=== PATIENT | female | born 1985 | race Two or more races ===

== ENCOUNTER → 2024-04-01 | Outpatient (CLI) | payer OTHER, SELFPAY ==
[2024-04-01 09:26] LABS: Basophils % (Auto) 1 % (0-2.5); Eosinophils # (Auto) 0.1 Thou/mm3 (0.0-0.5); Eosinophils % (Auto) 2 % (0-10); Hematocrit 37.7 % (36.0-46.0); Hemoglobin 12.9 g/dL (12.0-16.0); Immature Granulocytes % (Auto) 0 % (0-0); Immature Granulocytes Auto 0.02 Thou/mm3 (0.00-0.00); Lymphocytes # (Auto) 1.6 Thou/mm3 (1.0-4.8); Lymphocytes % (Auto) 25 % (10-50); Mean Corpuscular HGB Conc 34.2 g/dl (31.0-37.0); Mean Corpuscular Hemoglobin 30.6 pg (25.0-35.0); Mean Corpuscular Volume 89 fL (80-100); Monocytes # (Auto) 0.3 Thou/mm3 (0.0-0.8); Monocytes % (Auto) 5 % (0-12); Neutrophils # (Auto) 4.2 Thou/mm3 (1.8-7.7); Neutrophils % (Auto) 66 % (37-80); Nucleated Red Blood Cell % 0 /100 WBC (0); Platelet Count 319 Thou/mm3 (140-440); RDW Standard Deviation 38.2 fL (36.4-46.3); Red Blood Count 4.22 Miln/mm3 (4.00-5.20); White Blood Count 6.3 Thou/mm3 (3.6-11.0)
[2024-04-01 09:45] LABS: Alanine Aminotransferase 32 U/L (10-49); Albumin, Serum 4.4 gm/dL (3.5-5.0); Albumin/Globulin Ratio 1.9 (1.2-2.2); Alkaline Phosphatase 105 U/L (46-116); Anion Gap 9 (7-16); Aspartate Amino Transferase 19 U/L (0-34); BUN/Creatinine Ratio 14 Ratio (12-20); Bilirubin,Total 0.4 mg/dL (0.3-1.2); Blood Urea Nitrogen 10 mg/dL (9-23); Calcium 9.1 mg/dL (8.3-10.6); Calcium (Corrected) 9.1 mg/dL (8.5-10.1); Chloride 107 mMol/L (98-107); Creatinine (Component) 0.7 mg/dL (0.6-1.3); Globulin 2.3 gm/dL (2.3-3.5); Glucose 101 mg/dL (74-106); Osmolality,Calculated 276 (275-295); Potassium 3.8 mMol/L (3.4-5.1); Sodium 139 mMol/L (136-145); Total Protein 6.7 gm/dL (5.7-8.2); eGFR > 60 See Note
[2024-04-01 10:07] LABS: Carcinoembryonic Antigen 1.1 ng/mL (0.0-5.0)
== END | disposition home or self-care (01) ==
PROVIDERS: PCP Internal Medicine; Referring Provider Internal Medicine Hematology & Oncology; Visit Provider Internal Medicine Hematology & Oncology
DX: C50.311 Malignant neoplasm of lower-inner quadrant of right female breast (principal); C50.111 Malignant neoplasm of central portion of right female breast
CPT/HCPCS: 36415; 80053; 82378; 85025; 86304

== ENCOUNTER 2024-04-04 15:07 | Outpatient (RCR) | payer OTHER, SELFPAY ==
--- NOTE | 2024-04-05 06:10 | CTCFLWUP_ITS ---
Patient: EILEEN TATUM : 1985 Page 13 of 13 FOLLOW UP NOTE DATE OF SERVICE: 04/04/2024 NAME: EILEEN TATUM ACCOUNT: [id number] : 1985 AGE: 38 DIAGNOSIS: Stage I (pT1b, snN0, cM0) ER positive, DE positive, HER-2/austin negative, intermediate grade invasive ductal carcinoma of the right breast. S/p lumpectomy (12/11/2020) and sentinel lymph node b iopsy (01/15/2021) Oncotype DX recurrence score 24. S/p adjuvant chemotherapy with 1 cycle of AC and 3 cycles of TC chemotherapy. Patient was not able t o tolerate Adriamycin regimen which caused significant palpitations. (04/08/2021 - 06/18/2021) S/p adjuvant radiation therapy to the right breast (07/17/2021 - 09/04/2021) Ms. Tatum is premenopausal. Last menstrual period was on 06/12/2021. On Lupron and anastrozole (07/08/2021?02/13/2022). Anastrozole discontinued due to significant arthra lgias. Patient is started on Aromasin. Lupron and Aromasin stopped on 09/24/2022 due to depression a t patient's request. Tamoxifen started on 09/24/2022. PALB2 and CHEK2 mutaion positive S/p hysteroscopy, LEEP cone biopsy of the cervix, endocervical curettings and endometrial curettings on 12/16/2022. Patient had cold knife conization and endocervical curettage again on 02/18/2023. Pathology was nega tive for malignancy. Status post bilateral mastectomies on 09/23/2023 REASON FOR TODAY?S VISIT: Patient is here for follow-up. Patient have early stage breast cancer but was found to have PAL B2 and CHEK2 mutation and underwent bilateral mastectomy hysterectomy and oopho rectomy. Patient also follows with Dr. Ravi for his pancreatic cancer surveillance and Dr. Faustino hebert GI cancer surveillance. Patient understand that she is at high risk of GI malignancies. HISTORY OF PRESENT ILLNESS: Eileen Tatum is a 38-year-old ENG speaking female with f ollowing oncology history. Ms. Tatum felt a lump in the upper inner quadrant of the right [address] in early part of 2018. She saw Dr. Camp who apparently aspirated this area about 3 times. Fauzia ent continues to have the mass lesion. 10/21/2018: Patient had bilateral breast ultrasound? 01/25/2019: Ultrasound-guided biopsy of the right breast cystic solid mass lesion? 05/11/2020: Bilateral diagnostic digital mammograms? 07/17/2020: Right breast ultrasound? 09/06/2020: right breast ultrasound-guided biopsy? 12/11/2020: Patient had right breast lumpectomy? 01/15/2021: Ms. Tatum had sentinel lymph node biopsy? Oncotype DX score (reported on 03/19/2021): Recurrence score 24 with an absolute chemotherapy benefit of 6.5% in premenopausal woman. 02/18/2021: [facility] genetic test results? 04/08/2021: Patient received first cycle of dose dense AC. Unfortunately she developed significant t achycardia along with shortness of breath intermittently few days after chemotherapy. She was monito ring her tachycardia on the apple phone along with apple watch. At times her heart rate went up to 1 70. 05/06/2021: Patient received first cycle of TC chemotherapy. 05/15/2021?05/20/2021: Patient was admitted to [facility] because of neutropenic fever as well as asymptomatic Covid infection. She was treated with IV antibiotics as well as Neupogen. S he did not have any pneumonia. She did not require any oxygen therapy. 04/08/2021?06/18/2021: Ms. Tatum received 1 cycle of AC chemotherapy and 3 cycles of TC chemothe rapy in the adjuvant setting. 07/08/2021: Ms. Tatum is started on anastrozole and Lupron. 12/11/2021: Pelvic ultrasound? 02/13/2022: Anastrozole discontinued due to arthralgias. Patient is started on Aromasin. 09/24/2022: Stopped Lupron due to depression at patient?s request 09/23/2022: Started on tamixofen. 11/07/2022: US transvaginal 11/07/2022: Mammo CAD diagnostic BI 12/09/2022: Patient had endometrial biopsy as well as endocervical biopsy 12/16/2022: Ms. Tatum had hysteroscopy, LEEP cone biopsy of the cervix, endocervical curettings and endometrial curettings 02/18/2023: Ms. Tatum had examination under anesthesia, cold knife conization and endocervical curettage for a suspicious mass of the cervix. 06/16/2023: Bilateral screening mammograms 06/24/2023: Bilateral breast ultrasound? 09/23/2023: Patient had bilateral mastectomies. PAST MEDICAL HISTORY: Anemia PAST SURGICAL HISTORY: Appendectomy; umbilical hernia repair - 2019 Right breast lumpectomy - 12/11/2020 Reserve node biopsy - Left knee - 01/09/2021 Lasik surgery - 2013 MEDICATIONS: 1. Atarax - 25 mg 1 tab As directed 2. Flexeril - 5 mg 1 tab Daily 3. gabapentin - 100 mg 1 tab Daily 4. tamoxifen - 20 mg 1 tab Daily 5. Tylenol - 325 mg 1 tab As directed 6. Zofran - 8 mg 1 tab Three times a day 7. ZyrTEC - 10 mg 1 Capsule Daily?Palabra Meds? Medications Last Reconciled by Elena Haynes MA on 12/02/2023 ALLERGIES: tramadol; dairy; Adhesive tape REVIEW OF SYSTEMS:?Clone ROS? Neurological: No headache, seizures or blurring of vision. Gastrointestinal: No nausea, vomiting, diarrhea or constipation. Cardiovascular: No palpitations or angina pains. Respiratory: No cough, chest pain or shortness of breath. PHYSICAL EXAMINATION:?ClonePE? VITAL SIGNS: Temperature?98.2, B/P?120/85, Oxygen?Saturation?97% EYE: Conjunctivae is pink. MOUTH: Oral cavity is dry. CHEST: Clear to auscultation. No wheezes or rales audible. Very well healing scar on the right breas t without any evidence of infection. CARDIAC: Rhythm regular, no murmurs or gallops present. ABDOMEN: Soft. No hepatomegaly. No splenomegaly. EXTREMITIES: No pedal edema or cyanosis. LABORATORY DATA: Date 04/01/2024 Time 8:24 AM ??WHITE BLOOD COUNT (Thou/mm3) 6.3 ??RED BLOOD COUNT (Miln/mm3) 4.22 ??HEMOGLOBIN (gm/dl) 12.9 ??HEMATOCRIT (%) 37.7 ??MCV (MEAN CORPUSCULAR VOL) (fl) 89 ??MCH (MEAN CORPUSCULAR HGB) (pg) 30.6 ??MCHC (MEAN CORPSCULR HGB CONC) (gm/dl) 34.2 ??RDW (RBC DISTRIBUTION WDTH) SD (fl) 38.2 ??PLATELET COUNT (Thou/mm3) 319 ??NEUTROPHILS %, AUTO (%) 66 ??LYMPH %, AUTO (%) 25 ??MONO %, AUTO (%) 5 ??EOS %, AUTO (%) 2 ??BASO %, AUTO (%) 1 ??NUCLEATED RBC % (/100 WBC) 0 ??NEUTROPHILS, AUTO (Thou/mm3) 4.2 ??LYMPH, AUTO (Thou/mm3) 1.6 ??MONO, AUTO (Thou/mm3) 0.3 ??EOS, AUTO (Thou/mm3) 0.1 ??BASO, AUTO (Thou/mm3) 0.0 ??NUCLEATED RBC # (Thou/mm3) 0.00 ??IMMATURE GRANULOCYTES % AUTO (%) 0 ??IMMATURE GRANULOCYTES, AUTO (Thou/mm3) 0.02 H ??GLUCOSE,RANDOM (mg/dL) 101 ??BLOOD UREA NITROGEN (mg/dL) 10 ??CREATININE (mg/dL) 0.70 ??SODIUM (mmol/L) 139 ??POTASSIUM (mmol/L) 3.8 ??CHLORIDE (mmol/L) 107 ??CO2 (CARBON DIOXIDE) (mmol/L) 23.0 ??ANION GAP (mmol/L) 9 ??OSMOLALITY, CALC 276 ??BUN/CREATININE RATIO (Ratio) 14 ??CrCl (CandG) (ml/min) 131.27 ??AST/SGOT (Unit/L) 19 ??ALT/SGPT (Unit/L) 32 ??ALKALINE PHOSPHATASE (Unit/L) 105 ??BILIRUBIN, TOTAL (mg/dL) 0.4 ??PROTEIN TOTAL (gm/dl) 6.7 ??ALBUMIN, SERUM (gm/dl) 4.4 ??GLOBULIN (gm/dl) 2.3 ??ALBUMIN/GLOBULIN RATIO 1.9 ??CALCIUM, SERUM (mg/dL) 9.1 ??CALCIUM SERUM (CORRECTED) (mg/dL) 9.1 ??CEA (O*) (ng/ml) 1.1 ??CA 125 (O*) (Unit/mL) 9.0 Other Labs ? ??CrCl (J) (ml/min) 109.5 ??eGFR (See Note) > 60 ASSESSMENT: 1. Stage I (pT1b, snN0, cM0) ER positive, DE positive, HER-2/austin negative, intermediate grade invasiv e ductal carcinoma of the right breast. S/p lumpectomy (12/11/2020) and sentinel lymph node biopsy (). Oncotype DX recurrence score 24. KXEN hereditary cancer test showed her to be positive for PALB2 as well as CHEK2 mutations a s described above. Ms. Tatum's paternal aunt had breast cancer. No family history of ovarian cancers Patient had bilateral prophylactic mastectomies on 09/23/2023 in [place] followed by breast reconstruct ionStatus post bilateral prophylactic mastectomies on 09/23/2023. Ms. Tatum had hysteroscopy as well as endocervical curettings (12/16/2022) which showed low-grad e squamous intraepithelial lesion (JAEL I). Currently Ms. Tatum is being followed by Dr. Galo Winchester, gynecology oncologist regarding the cervical mass. CT scan of the chest abdomen and pelvis with contrast done on 11/20/2022 showed a subtle mass in the c ervix. Transvaginal Ultrasound (11/07/2022) showed pelvic mass, will get a OBGYN referral going. Pelvic ultrasound is negative for any uterine or ovarian masses Ms. Tatum completed 4 cycles of adjuvant chemotherapy (1 cycle of before meals and 3 cycles of TC. She also completed adjuvant radiation therapy. . PLAN: Continue tamoxifen 20 mg p.o. daily. RTC in 6 months with CBC CMP CA 19-9 CEA and CA 15-[address] Christiansen CC: Tomas?Sunshine?Buddy,? PCP: Tomas Gunderson Referring: Tomas Gunderson This document was completed utilizing speech recognition software. Grammatical errors, random word in sertions, pronoun errors, and incomplete sentences are an occasional consequence of this system due t o software limitations, ambient noise, and hardware issues. Any formal questions or concerns about th e content, text or information contained within the body of this dictation should be directly address ed to the provider for clarification.
== END 2024-04-26 23:59 | disposition home or self-care (01) ==
LOC: SCTC 15:07
PROVIDERS: PCP Internal Medicine; Referring Provider Internal Medicine; Visit Provider Internal Medicine Hematology & Oncology
DX: C50.311 Malignant neoplasm of lower-inner quadrant of right female breast (principal); Z17.0 Estrogen receptor positive status [ER+]; Z17.21 Progesterone receptor positive status; Z17.32 Human epidermal growth factor receptor 2 negative status; Z90.13 Acquired absence of bilateral breasts and nipples; Z79.810 Long term (current) use of selective estrogen receptor modulators (SERMs); Z15.02 Genetic susceptibility to malignant neoplasm of ovary; Z15.09 Genetic susceptibility to other malignant neoplasm
CPT/HCPCS: 99212; G0463

== ENCOUNTER → 2024-07-20 | Outpatient (CLI) | payer OTHER, SELFPAY ==
--- NOTE | 2024-07-20 14:15 | XR_ITS ---
Examination: Lumbar spine, 5 views Technique: Lumbar spine AP, lateral, coned lateral lower lumbar spine, bilateral obliques 5 views Exam date and time: July 20, 2024 1437 hours INDICATIONS: Low back pain years. FINDINGS: Satisfactory alignment lumbar vertebral bodies No lumbar fracture Mild disc narrowing posteriorly L5-S1 No spondylolisthesis IMPRESSION: Mild disc narrowing posteriorly L5-S1
--- NOTE | 2024-07-20 14:15 | XR_ITS ---
Examination: Thoracic spine 3 views TECHNIQUE: AP lateral coned lateral upper dorsal spine 3 views Exam date and time: July 20, 2024 1438 hours INDICATIONS: Back pain 3 weeks FINDINGS: Satisfactory alignment thoracic vertebral bodies No thoracic fracture Mild diffuse thoracic disc narrowing IMPRESSION: Mild diffuse thoracic degenerative disc disease
== END | disposition home or self-care (01) ==
PROVIDERS: PCP Family Medicine; Referring Provider Internal Medicine; Visit Provider Internal Medicine
DX: M48.07 Spinal stenosis, lumbosacral region (principal); M51.34 Other intervertebral disc degeneration, thoracic region
CPT/HCPCS: 72072; 72100; 72110

== ENCOUNTER 2024-07-25 16:37 | Emergency (ER) | payer OTHER, SELFPAY ==
[2024-07-25 16:37] VITALS: BMI 25.7
[2024-07-25 16:50] VITALS: BP 119/88; PULSE 99; RESP 18; TEMP 36.9; O2SAT 97
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
[2024-07-25] MEDS: KETOROLAC INJ 30 MG/ML VIAL IM (17:20)
[2024-07-25] MEDS: DIPHTH,PERTUSS(ACELL),TET VAC 0.5 ML SYR- ADULT IMi (18:12)
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
== END 2024-07-25 18:15 | disposition home or self-care (01) ==
PROVIDERS: Emergency Provider Emergency Medicine
DX: S60.812A Abrasion of left wrist, initial encounter (principal); S60.212A Contusion of left wrist, initial encounter; V89.2XXA Person injured in unspecified motor-vehicle accident, traffic, initial encounter; Z23 Encounter for immunization
CPT/HCPCS: 73090; 73130; 90471; 90715; 96372; 99283; J1885

== ENCOUNTER → 2024-09-30 | Outpatient (CLI) | payer OTHER, SELFPAY ==
[2024-09-30 10:23] LABS: Basophils # (Auto) 0.1 Thou/mm3 (0.0-0.2); Basophils % (Auto) 1 % (0-2.5); Eosinophils # (Auto) 0.1 Thou/mm3 (0.0-0.5); Eosinophils % (Auto) 1 % (0-10); Hematocrit 37.1 % (36.0-46.0); Hemoglobin 12.2 g/dL (12.0-16.0); Immature Granulocytes % (Auto) 0 % (0-0); Immature Granulocytes Auto 0.02 Thou/mm3 (0.00-0.00); Lymphocytes # (Auto) 2.7 Thou/mm3 (1.0-4.8); Lymphocytes % (Auto) 33 % (10-50); Mean Corpuscular HGB Conc 32.9 g/dl (31.0-37.0); Mean Corpuscular Hemoglobin 30.6 pg (25.0-35.0); Mean Corpuscular Volume 93 fL (80-100); Monocytes # (Auto) 0.4 Thou/mm3 (0.0-0.8); Monocytes % (Auto) 5 % (0-12); Neutrophils # (Auto) 5.1 Thou/mm3 (1.8-7.7); Neutrophils % (Auto) 61 % (37-80); Nucleated Red Blood Cell % 0 /100 WBC (0); Platelet Count 319 Thou/mm3 (140-440); RDW Standard Deviation 41.1 fL (36.4-46.3); Red Blood Count 3.99 Miln/mm3 (4.00-5.20); White Blood Count 8.3 Thou/mm3 (3.6-11.0)
[2024-09-30 10:34] LABS: Alanine Aminotransferase 23 U/L (10-49); Albumin, Serum 4.3 gm/dL (3.5-5.0); Albumin/Globulin Ratio 2.2 (1.2-2.2); Alkaline Phosphatase 85 U/L (46-116); Anion Gap 11 (7-16); Aspartate Amino Transferase 16 U/L (0-34); BUN/Creatinine Ratio 15 Ratio (12-20); Bilirubin,Total 0.4 mg/dL (0.3-1.2); Blood Urea Nitrogen 12 mg/dL (9-23); Calcium 9.2 mg/dL (8.3-10.6); Calcium (Corrected) 9.2 mg/dL (8.5-10.1); Carbon Dioxide 25.2 mMol/L (20.0-31.0); Chloride 104 mMol/L (98-107); Creatinine (Component) 0.8 mg/dL (0.6-1.3); Glucose 126 mg/dL (74-106); Osmolality,Calculated 281 (275-295); Potassium 3.2 mMol/L (3.4-5.1); Sodium 140 mMol/L (136-145); Total Protein 6.3 gm/dL (5.7-8.2); eGFR > 60 See Note
[2024-09-30 10:51] LABS: CA 15-3 1.7 U/mL (<32.4)
[2024-10-04 06:39] LABS: CA 19-9 Antigen* 36 U/mL (<34)
== END | disposition home or self-care (01) ==
LOC: SCTO 08:58
PROVIDERS: PCP Internal Medicine; Referring Provider Internal Medicine Hematology & Oncology; Visit Provider Internal Medicine Hematology & Oncology
DX: C50.111 Malignant neoplasm of central portion of right female breast (principal); C50.311 Malignant neoplasm of lower-inner quadrant of right female breast
CPT/HCPCS: 36415; 80053; 82378; 85025; 86300; 86301

== ENCOUNTER 2024-10-03 11:01 | Outpatient (RCR) | payer OTHER, SELFPAY ==
--- NOTE | 2024-10-09 22:41 | CTCFLWUP_ITS ---
Patient: EILEEN TATUM : 1985 Page 13 of 14 FOLLOW UP NOTE DATE OF SERVICE: 10/03/2024 NAME: EILEEN TATUM ACCOUNT: [id number] : 1985 AGE: 39 INTERVAL HISTORY: Subjective: Chief Complaint Follow-up visit for breast cancer treatment, more frequent headaches History of Present Illness Eileen is a young female patient with a history of stage one breast cancer, diagnosed in March, who presents for follow-up. She reports no changes since her last visit. The patient's medical history is significant for stage one breast cancer with an Oncotype DX score of 24, leading to chemotherapy treatment. She has a PALB2 and CHEK2 mutation. Eileen underwent bilateral mastectomies with reconstruction and a total hysterectomy due to a benign cyst in her right ovary. She is currently on tamoxifen. Eileen reports experiencing more frequent headaches recently. She has been losing weight slowly through increased physical activity, including walking more and going to the gym. The patient denies any sudden or unexplained weight loss. She is following up with Dr. Harmon for colonoscopies every [address] Whitney at [facility] for annual pancreatic MRIs. The patient reports no family history of cancer. She has no children and did not preserve her eggs before her total hysterectomy. Eileen adheres to her follow- up appointments and maintains a healthy lifestyle, including regular exercise and a balanced diet. Medications and Supplements - Tamoxifen - Vitamin D - Taken daily Review of Systems General: Positive for gradual weight loss. HEENT: Positive for more frequent headaches. Neurological: Positive for more frequent headaches. Objective: Laboratory, Imaging, and Diagnostic Test Results - Oncotype DX score: 24 - Bone density scan (June 2022): Normal - Imaging scan (December 2023): Negative - ETD colonoscopy: Performed (date not specified) - MRI: Performed annually (specific results not mentioned) ONCOLOGY HISTORY: DIAGNOSIS: Stage I (pT1b, snN0, cM0) ER positive, WI positive, HER-2/austin negative, intermediate grade invasive ductal carcinoma of the right breast. S/p lumpectomy (12/11/2020) and sentinel lymph node biopsy (01/15/2021) Oncotype DX recurrence score 24. S/p adjuvant chemotherapy with 1 cycle of AC and 3 cycles of TC chemotherapy. Patient was not able to tolerate Adriamycin regimen which caused significant palpitations. (04/08/2021 - 06/18/2021) S/p adjuvant radiation therapy to the right breast (07/17/2021 - 09/04/2021) Ms. Tatum is premenopausal. Last menstrual period was on 06/12/2021. On Lupron and anastrozole (07/08/2021?02/13/2022). Anastrozole discontinued due to significant arthralgias. Patient is started on Aromasin. Lupron and Aromasin stopped on 09/24/2022 due to depression at patient's request. Tamoxifen started on 09/24/2022. PALB2 and CHEK2 mutaion positive S/p hysteroscopy, LEEP cone biopsy of the cervix, endocervical curettings and endometrial curettings on 12/16/2022. Patient had cold knife conization and endocervical curettage again on 02/18/2023. Pathology was negative for malignancy. Status post bilateral mastectomies on 09/23/2023 REASON FOR TODAY?S VISIT: Patient is here for follow-up. Patient have early stage breast cancer but was found to have PAL B2 and CHEK2 mutation and underwent bilateral mastectomy hysterectomy and oophorectomy. Patient also follows with Dr. Ravi for his pancreatic cancer surveillance and Dr. Harmon for GI cancer surveillance. Patient understand that she is at high risk of GI malignancies. Malignant neoplasm of central portion of right female breast [ICD10] C50.111 DATE OF DIAGNOSIS: STAGE/TNM: TREATMENT HISTORY: Care?Plan Start?Date Cycle Day Intent AC-Taxol?Dose?Dense?q?2wks 03/20/2021 1 14 Curative?(adjuvant) DOCEtaxel?75,?Cyclophosphamide?600 05/06/2021 1 21 Curative?(adjuvant) Lupron?7.5?mg 07/08/2021 1 30 Curative?(adjuvant) HISTORY OF PRESENT ILLNESS: Eileen Tatum is a 39-year-old ENG speaking female with following oncology history. Ms. Tatum felt a lump in the upper inner quadrant of the right breast in early part of 2018. She saw Dr. Camp who apparently aspirated this area about 3 times. Patient continues to have the ma ss lesion. 10/21/2018: Patient had bilateral breast ultrasound? 01/25/2019: Ultrasound-guided biopsy of the right breast cystic solid mass lesion? 05/11/2020: Bilateral diagnostic digital mammograms? 07/17/2020: Right breast ultrasound? 09/06/2020: right breast ultrasound-guided biopsy? 12/11/2020: Patient had right breast lumpectomy? 01/15/2021: Ms. Tatum had sentinel lymph node biopsy? Oncotype DX score (reported on 03/19/2021): Recurrence score 24 with an absolute chemotherapy benefit of 6.5% in premenopausal woman. 02/18/2021: Leeann genetic test results? 04/08/2021: Patient received first cycle of dose dense AC. Unfortunately she developed significant tachycardia along with shortness of breath intermittently few days after chemotherapy. She was monitoring her tachycardia on the apple phone along with apple watch. At times her heart rate went up to 170. 05/06/2021: Patient received first cycle of TC chemotherapy. 05/15/2021?05/20/2021: Patient was admitted to [facility] because of neutropenic fever as well as asymptomatic Covid infection. She was treated with IV antibiotics as well as Neupogen. She did not have any pneumonia. She did not require any oxygen therapy. 04/08/2021?06/18/2021: Ms. Tatum received 1 cycle of AC chemotherapy and 3 cycles of TC chemotherapy in the adjuvant setting. 07/08/2021: Ms. Tatum is started on anastrozole and Lupron. 12/11/2021: Pelvic ultrasound? 02/13/2022: Anastrozole discontinued due to arthralgias. Patient is started on Aromasin. 09/24/2022: Stopped Lupron due to depression at patient?s request 09/23/2022: Started on tamixofen. 11/07/2022: US transvaginal 11/07/2022: Mammo CAD diagnostic BI 12/09/2022: Patient had endometrial biopsy as well as endocervical biopsy 12/16/2022: Ms. Tatum had hysteroscopy, LEEP cone biopsy of the cervix, endocervical curettings and endometrial curettings 02/18/2023: Ms. Tatum had examination under anesthesia, cold knife conization and endocervical curettage for a suspicious mass of the cervix. 06/16/2023: Bilateral screening mammograms 06/24/2023: Bilateral breast ultrasound? 09/23/2023: Patient had bilateral mastectomies. 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 Flexeril - 5 mg 1 tab Daily 2. gabapentin - 100 mg 1 tab Daily 3. ibuprofen - 600 mg 1 tab As needed 4. tamoxifen - 20 mg 1 tab Daily 5. Tylenol - 325 mg 1 tab As directed 6. Zofran - 8 mg 1 tab Three times a day 7. ZyrTEC - 10 mg 1 Capsule Daily Medications Last Reconciled by Estela Kennedy MA on 10/03/2024 ALLERGIES: tramadol; dairy; Adhesive tape REVIEW OF SYSTEMS: A complete 14-point review of systems was performed and is negative except as noted in interval history. PHYSICAL EXAMINATION: VITAL SIGNS: Temperature?98, B/P?109/77, Oxygen?Saturation?98% Weight?155?lbs PAIN: 0 - No pain ECOG Performance Status: 0 - Asymptomatic and fully active EYE: Conjunctivae is pink. MOUTH: Oral cavity is dry. CHEST: Clear to auscultation. No wheezes or rales audible. Very well healing scar on the right breast without any evidence of infection. CARDIAC: Rhythm regular, no murmurs or gallops present. ABDOMEN: Soft. No hepatomegaly. No splenomegaly. EXTREMITIES: No pedal edema or cyanosis. LABORATORY DATA: I have personally reviewed and interpreted each of the patient?s relevant lab tests, abnormal findings are below: Date 09/30/24 ??WHITE?BLOOD?COUNT?(Thou/mm3) 8.3 ??RED?BLOOD?COUNT?(Miln/mm3) 3.99?L ??HEMOGLOBIN?(gm/dl) 12.2 ??HEMATOCRIT?(%) 37.1 ??PLATELET?COUNT?(Thou/mm3) 319 ??NEUTROPHILS?%,?AUTO?(%) 61 ??LYMPH?%,?AUTO?(%) 33 ??NEUTROPHILS,?AUTO?(Thou/mm3) 5.1 ??GLUCOSE,RANDOM?(mg/dL) 126?H ??BLOOD?UREA?NITROGEN?(mg/dL) 12 ??CREATININE?(mg/dL) 0.80 ??SODIUM?(mmol/L) 140 ??POTASSIUM?(mmol/L) 3.2?L ??CHLORIDE?(mmol/L) 104 ??CrCl?(CandG)?(ml/min) 109.62 ??AST/SGOT?(Unit/L) 16 ??ALT/SGPT?(Unit/L) 23 ??ALKALINE?PHOSPHATASE?(Unit/L) 85 ??BILIRUBIN,?TOTAL?(mg/dL) 0.4 ??PROTEIN?TOTAL?(gm/dl) 6.3 ??ALBUMIN,?SERUM?(gm/dl) 4.3 ??GLOBULIN?(gm/dl) 2.0?L ??ALBUMIN/GLOBULIN?RATIO 2.2 ??CALCIUM,?SERUM?(mg/dL) 9.2 ??CALCIUM?SERUM?(CORRECTED)?(mg/dL) 9.2 ??CEA?(O*)?(ng/ml) 1.0 ??CA?19-9?(Unit/mL) 36.00?A ASSESSMENT/PLAN: 1. Stage I (pT1b, snN0, cM0) ER positive, WI positive, HER-2/austin negative, intermediate grade invasive ductal carcinoma of the right breast. S/p lumpectomy (12/11/2020) and sentinel lymph node biopsy (01/15/2021). Oncotype DX recurrence score 24. [employer] hereditary cancer test showed her to be positive for PALB2 as well as CHEK2 mutations as described above. Ms. Tatum's paternal aunt had breast cancer. No family history of ovarian cancers Patient had bilateral prophylactic mastectomies on 09/23/2023 in [place] followed by breast reconstructionStatus post bilateral prophylactic mastectomies on 09/23/2023. Ms. Tatum had hysteroscopy as well as endocervical curettings (12/16/2022) which showed low-grade squamous intraepithelial lesion (JAEL I). Currently Ms. Tatum is being followed by Dr. Lennie Winchester, gynecology oncologist regarding the cervical mass. CT scan of the chest abdomen and pelvis with contrast done on 11/20/2022 showed a subtle mass in the cervix. Transvaginal Ultrasound (11/07/2022) showed pelvic mass, will get a OBGYN referral going. Pelvic ultrasound is negative for any uterine or ovarian masses Ms. Tatum completed 4 cycles of adjuvant chemotherapy (1 cycle of before meals and 3 cycles of TC. She also completed adjuvant radiation therapy. Patient was diagnosed with stage one breast cancer in March. Oncotype DX score was 24, leading to the decision for chemotherapy despite the benefit being less than one percent due to the patient's young age. Patient underwent bilateral mastectomies with reconstruction. CHEK2 mutation was identified. Patient also had a total hysterectomy due to a benign cyst in the right ovary. Last scan in December was negative. Patient is currently on tamoxifen. Plan: - Continue tamoxifen (dose and frequency not specified) - Order bone density scan due to ovarian absence and tamoxifen use - Recommend daily vitamin D supplementation - Monitor for sudden weight loss or new symptoms - Consider annual Zometa if bone density is low - Advise genetic counseling for future family planning - Continue current weight loss efforts through walking and gym attendance - Recommend keto diet with emphasis on healthier carbs (vegetables and fruits) - Limit processed foods - Follow up after bone density results CHEK2 Mutation - Increased Cancer Risk Assessment: Patient has a CHEK2 mutation, which increases the risk for various cancers, including colorectal and pancreatic. Patient is currently following up with Dr. Harmon for colonoscopy every [address] Whitney at [facility] for annual pancreatic MRI. Plan: - Add CA99 and CEA markers to testing for colon and pancreatic cancer screening - Continue follow-up with Dr. Harmon for colonoscopy every 3 years - Continue annual pancreatic MRI with Dr. Whitney at [facility] - Educate patient on being vigilant for symptoms related to colorectal and pancreatic issues Menopausal Symptoms Assessment: Patient has undergone total hysterectomy, leading to surgical menopause. Patient reports more frequent headaches, which may be related to menopausal changes. Other potential menopausal symptoms include reduced vision, muscle weakness, vaginal dryness, and decreased libido. Plan: - Recommend vision check - Advise on use of vaginal moisturizers (e.g., applying Vaseline after shower) - Discuss possibility of using estrogen cream for vaginal health if needed - Encourage increased water intake - Avoid supplements with estrogen or phytoestrogens . ORDERS: Order # Description [id number] Comprehensive Metabolic Panel - 12 + CBC with Auto Diff [id number] CA 19-9 + CEA [id number] MD Follow Up 6 Month [id number] DXA L-Spine and Hip RETURN TO CLINIC: 6 m BILLING AND COMPLIANCE: I reviewed external records from providers outside my specialty as summarized above. I spent a total of 50 minutes on this patient?s care on the day of their visit excluding time spent related to any billed procedures. This time includes time spent with the patient as well as time spent documenting in the medical record, reviewing patients records and tests, obtaining history, placing orders, communicating with other healthcare professionals, counseling the patient, family or caregiver, and/or care coordination for the diagnoses above. Electronically Signed by: {Object.Sanct_ID*[email or web address]@M}, {Object.Sanct_ID*PnP.Suffix@U} D: {Object.Sanct_Date} T: {Object.Sanct_Time} CC: Tomas?Sunshine?Buddy,? PCP: Tomas Gunderson Referring: Tomas Gunderson This document was completed utilizing speech recognition software. Grammatical errors, random word insertions, pronoun errors, and incomplete sentences are an occasional consequence of this system due to software limitations, ambient noise, and hardware issues. Any formal questions or concerns about the content, text or information contained within the body of this dictation should be directly addressed to the provider for clarification.
== END 2024-10-24 23:59 | disposition home or self-care (01) ==
LOC: SCTC 11:01
PROVIDERS: PCP Internal Medicine; Referring Provider Internal Medicine; Visit Provider Internal Medicine Hematology & Oncology
DX: C50.311 Malignant neoplasm of lower-inner quadrant of right female breast (principal); Z17.0 Estrogen receptor positive status [ER+]; Z17.21 Progesterone receptor positive status; Z17.32 Human epidermal growth factor receptor 2 negative status; Z79.810 Long term (current) use of selective estrogen receptor modulators (SERMs); Z90.13 Acquired absence of bilateral breasts and nipples; Z92.3 Personal history of irradiation; Z92.21 Personal history of antineoplastic chemotherapy; Z15.09 Genetic susceptibility to other malignant neoplasm; Z90.710 Acquired absence of both cervix and uterus; Z90.722 Acquired absence of ovaries, bilateral
CPT/HCPCS: 99212; G0463

== ENCOUNTER → 2024-10-18 | Outpatient (CLI) | payer OTHER, SELFPAY ==
--- NOTE | 2024-10-18 12:20 | XR_ITS ---
Examination: Bone densitometry Date and time of exam:October 18, 2024 1312 hours INDICATIONS: Hysterectomy age 38 right breast carcinoma diagnosis calcium one month Technique: Lumbar spine and hip total bone mineralization values of an calculated. Peak reference and age match control results have been displayed. Findings: Lumbar spine total bone mineralization is1.025 gm/cm2. This is 0.2 standard deviations below peak reference. This is 0.1 standard deviations below age-matched controls. Hip total bone mineralization is 1.109 gm/cm2 This is 1.1 standard deviations above peak reference. This is 1.1 standard deviations above age-matched controls Impression: There is normal mineralization based on lumbar spine measurements. There is normal mineralization based on hip measurements Lumbar mineralization is decreased 0.8% compared with June 30, 2022. Hip mineralization is unchanged compared with June 30, 2022
== END | disposition home or self-care (01) ==
PROVIDERS: PCP Internal Medicine; Referring Provider Internal Medicine Hematology & Oncology; Visit Provider Internal Medicine Hematology & Oncology
DX: C50.311 Malignant neoplasm of lower-inner quadrant of right female breast (principal); C50.111 Malignant neoplasm of central portion of right female breast; M81.0 Age-related osteoporosis without current pathological fracture
CPT/HCPCS: 77080

== ENCOUNTER 2024-11-08 18:40 | Emergency (ER) | payer OTHER, SELFPAY ==
[2024-11-08 18:40] VITALS: BMI 25.6
--- NOTE | 2024-11-08 18:46 | EDNOTE_ITS ---
ED Chest Pain RME/HPI General Chief Complaint: Chest Pain Stated Complaint: CHEST PAIN Time Seen by Provider: 11/08/24 18:42 Arrival date/time: 11/08/24 18:40 RME / HPI RME / HPI narrative: This section includes all my notes and documentations, including HPI, PE, and ED course. Zeke Leigh MD HPI: 39yo female presents to the ED for complaints of palpitations and chest pain that radiates to her arm just [employer]. 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 Chest pain was as high as 8 out of 10 in severity. Currently, it is 3 out of 10. Patient has shortness of breath and chronic nausea. No other complaints reported. ROS: All negative except as documented in HPI. Physical Exam: General: Alert and oriented. No acute distress when remaining still. Eyes: Conjunctivae and lids clear. ENT: No nasal congestion. Neck: Supple. Heart: RRR. Lungs: No respiratory distress. Good air movement. No rhonchi, wheezing, rales. Skin: Warm and dry. Neuro: Alert and oriented X 3. I reviewed all diagnostic test results. My interpretation of the EKG is sinus tachycardia (105 bpm) with no acute ST?T changes. My interpretation of the chest x-ray is NAD. Blood tests unremarkable including negative troponin x 2 and negative D- dimer/BNP. At this point, diagnoses include palpitations of unclear etiology. Treatment here included Aspirin, Metoprolol, and Zofran. Significant improvement noted. Recommended more outpatient cardiac workup. Based on my best medical judgment, made decision no further evaluation or treatment indicated at this time. Patient understands and agrees to the [facility] instructions customized and printed, see below. Discharge instructions from Dr. Leigh: 1. After extensive evaluation, there is no life-threatening condition. Such as heart attack or pulmonary embolism (blood clots in your lungs) or pneumothorax (collapsed lung). 2. There are noncardiac causes of chest pain. Including stress and anxiety and nerves. And chest pain can originate the chest wall and not from an internal organ. Because chest wall has many joints and muscles between the ribs, so sprains and strains are common. 3. Take metoprolol 25 mg daily since it helped your symptoms. And you live longer with slower heart rate and lower BP. 4. See a private doctor on 11/09/2024. To make sure there is no serious underlying heart condition, ask to help you get more tests for your heart that cannot be done here in the ER. Such as Holter Monitor (cardiac monitoring at home from a day to even a month), heart stress test (on treadmill or with medication), echocardiogram (imaging of your heart structures), heart catherization (checking for blockages in your heart arteries), and a referral to see a [facility]. 5. Seek immediate medical care with worsening or with any concerns. Zeke Leigh MD Related Data Home Medications ?Medication ?Instructions ?Recorded ?Confirmed cetirizine 10 mg tablet (Zyrtec) 10 mg PO QDAY 1 05/18/23 tamoxifen 20 mg tablet 20 mg PO QDAY 12/15/2205/18 ondansetron HCl 4 mg tablet 4 mg PO Q12H 05/18/2304/28 Previous Rx's ?Medication ?Instructions ?Recorded metoprolol succinate 25 mg 25 mg PO DAILY #90 tabs tablet,extended release 24 hr Allergies Allergy/AdvReac Type Severity Reaction Status Date / Time adhesive tape Allergy Blister Verified 11/08/24 18:47 tramadol Allergy Hives Verified 11/08/24 18:47 dairy Allergy Diarrhea Uncoded 11/08/24 18:47 Review of Systems Review of Systems Systems Reviewed: All systems reviewed, normal except as documented Past Medical History Past Medical History NEUROLOGIC: Positive Neurological Disorders and Migraine; Negative Seizures CARDIAC: Positive Cardiac Arrhythmia (TACHYCARDIA when taking IV chemo); Negative Cardiac Disorders, Congestive Heart Failure, Edema, Cellulitis or Varicose Veins RESPIRATORY: Negative Chronic Obstructive Pulmonary Disease (COPD), Asthma, Tuberculosis, Pulmonary Embolism or Sleep Apnea GASTROINTESTINAL: Negative Gastrointestinal Disorders, Hepatitis or Gastroesophageal Reflux Disease GENITOURINARY: Negative Genitourinary Disorders or Renal Disease REPRODUCTIVE: Positive Breast Cancer (Right); Negative Previous Pregnancies MUSCULOSKELETAL: Positive Musculoskeletal Disorders (joint pain) ENDOCRINE: Negative Endocrine Disorders, Diabetes Mellitus Type 1 or Diabetes Mellitus Type 2 HEMATOLOGIC: Positive Blood Disorders and Anemia (hx of iron transfusion); Negative Sickle Cell Disease PSYCHO/SOCIAL: Negative Anxiety OTHER HISTORY: Positive Hospitalization (2021 covid and neutrophenic), Chemotherapy (2021), Chicken Pox, Cancer and Breast Cancer (Right); Negative Autoimmune Disease, Shingles, Falls, Blood Transfusions, Anesthesia Reactions, Radiation Therapy, MRSA, Measles or Mumps Family History FAMILY HISTORY: Positive Family Psychiatric Problems (anxiety), Family Cardiac Disorders, Family Gastrointestinal Problems and Family Surgery; Negative Family Respiratory Disorders, Family Cancer or Family Anesthesia Reaction Surgical History SURGICAL: Positive Eye Surgery (bilateral lasik surgery), Arthroscopy (left knee) and Lumpectomy (Right breast with lymph node removal); Negative Pacemaker Social History SMOKING STATUS: Never smoker ED Exam Narrative Physical exam: As noted in HPI. Course Course Course Narrative: CXR is ordered for determining the etiology of chest pain. Quality Measures none Orders Category Date Time Status EKG (ED ONLY) *Do not use* NOW Care 11/08/24 18:51 Completed Saline [Insert IV] NOW Care 11/08/24 18:50 Completed EKG (ED Only) Stat Exams 11/08/24 18:51 Ordered XR chest 1V portable Stat Exams 11/08/24 18:51 Completed Amylase Stat Lab 11/08/24 19:00 Completed BNP [B-Type Natriuretic Peptide] Stat Lab 11/08/24 19:00 Completed Bilirubin,Direct Stat Lab 11/08/24 19:00 Completed CBC Stat Lab 11/08/24 19:00 Completed CMP [Comprehensive Metabolic Panel] Stat Lab 11/08/24 19:00 Completed D-Dimer Stat Lab 11/08/24 19:00 Completed Free T4 (Free Thyroxine) Stat Lab 11/08/24 19:00 Completed Lipase Stat Lab 11/08/24 19:00 Completed Magnesium Stat Lab 11/08/24 19:00 Completed PT [Prothrombin Time with INR] Stat Lab 11/08/24 19:00 Completed PTT [Partial Thromboplastin Time] Stat Lab 11/08/24 19:00 Completed TSH [Thyroid Stimulating Hormone] Stat Lab 11/08/24 19:00 Completed Troponin I Stat Lab 11/08/24 19:00 Completed Troponin I Stat Lab 11/08/24 21:07 Completed Aspirin Chew Med 11/08/24 18:50 Discontinued 324 mg PO X1 ONE Metoprolol Tartrate [Lopressor] Med 11/08/24 18:50 Discontinued 25 mg PO X1 ONE Ondansetron Inj [Zofran Inj] Med 11/08/24 18:50 Discontinued 4 mg IVP X1 ONE Vital Signs Vital signs: Vital Signs Temperature 97.8 F 11/08/24 19:03 Pulse Rate 113 H 11/08/24 19:03 Respiratory Rate 19 11/08/24 19:03 Blood Pressure 130/88 H 11/08/24 19:03 Pulse Oximetry (%) 99 11/08/24 19:03 Oxygen Delivery Method Room Air 11/08/24 19:03 Chest Pain MDM Narrative MDM Narrative:: 39yo female presents to the ED for complaints of palpitations and chest pain that radiates to her arm just [employer]. 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 Chest pain was as high as 8 out of 10 in severity. Currently, it is 3 out of 10. Patient has shortness of breath and chronic nausea. No other complaints reported. Patient data External records reviewed:: [facility] previous records (Per chart review, patient was seen here on 09/13/23 for atypical chest pain.) Clinical information provided by:: patient Social determinants that could affect healthcare access:: none Patient has the following chronic illnesses:: breast CA How is presenting disease/condition affected by chronic disease/condition?: uneffected by Evaluation data The following diagnostics were reviewed and interpreted by me:: lab results, radiology exam(s) and EKG tracing(s) Lab and/or radiology exams considered but not ordered:: none Interpretation Summary: I reviewed all diagnostic test results. My interpretation of the EKG is sinus tachycardia (105 bpm) with no acute ST?T changes. My interpretation of the chest x-ray is NAD. Blood tests unremarkable including negative troponin x 2 and negative D- dimer/BNP. Medications / Prescriptions Medications or Prescriptions considered but not ordered:: none Medication administrations:: Medication Administration History Discontinued Medications Aspirin (Aspirin 81 Mg Chew) 324 mg PO X1 ONE Stop: 11/08/24 18:51 Last Admin: 11/08/24 19:19 Dose: 324 mg Documented By: CLARE Metoprolol Tartrate (Metoprolol Tartrate 25 Mg Tablet) 25 mg PO X1 ONE Stop: 11/08/24 18:51 Last Admin: 11/08/24 19:18 Dose: 25 mg Documented By: CLARE Ondansetron HCl (Ondansetron Inj 2 Mg/Ml Inj 2 Ml) 4 mg IVP X1 ONE; Protocol Stop: 11/08/24 18:51 Last Admin: 11/08/24 19:18 Dose: 4 mg Documented By: CLARE Aspirin, Metoprolol, Zofran Consultations Consultation(s) initiated? (list below): No Diagnosis Chest Pain Differential Diagnosis: pneumothorax, stable angina, unstable angina pectoris, atypical chest pain, st elevation myocardial infarction, costo chondritis and other (Anxiety) Most likely diagnosis given after review of the tests above:: Palpitations of unclear etiology Admission Indicated Admission indicated?: not indicated Explain why admission is indicated or not indicated:: With significant improvement and no condition needing emergent intervention, there was no indication for admission. Admission Request Was there a request for admission?: No Disposition Plan Disposition Plan: Discharge Discharge Attestation Discharge Attestation: The patient and all family members were given an opportunity to ask questions and understood the discharge instructions. Discharge instructions specifically effects, indications for sooner follow up or return to the emergency department, and the expected course of current diagnosis. Patient condition: Stable Discharge Plan Plan Patient Disposition: HOME (Self Care) Prescriptions/Referrals Prescriptions/Med Rec: New metoprolol succinate 25 mg tablet extended release 24 hr 25 mg PO DAILY Qty: 90 3RF No Action cetirizine [Zyrtec] 10 mg Tablet 10 mg PO QDAY tamoxifen 20 mg Tablet 20 mg PO QDAY ondansetron HCl 4 mg tablet 4 mg PO Q12H Patient Comments: TAKE 1 TABLET BY MOUTH EVERY 12 HOURS NEEDED FOR NAUSEA FOR 30 DAYS Referrals: Fartun Snell MD [Primary Care Provider] - In 1 week Problem List Clinical Impression: Palpitations Patient/Caregiver Discharge Instructions Discharge Activity: activity as tolerated Education Materials: ED Palpitations Additional Instructions: Discharge instructions from Dr. Leigh: 1. After extensive evaluation, there is no life-threatening condition.? Such as heart attack or pulmonary embolism (blood clots in your lungs) or pneumothorax (collapsed lung). 2. There are noncardiac causes of chest pain. Including stress and anxiety and nerves.? And chest pain can originate the chest wall and not from an internal organ.? Because chest wall has many joints and muscles between the ribs, so sprains and strains are common.?? 3. Take metoprolol 25 mg daily since it helped your symptoms. And you live longer with slower heart rate and lower BP. 4. See a private doctor on 11/09/2024. To make sure there is no serious underlying heart condition, ask to help you get more tests for your heart that cannot be done here in the ER.? Such as Holter Monitor (cardiac monitoring at home from a day to even a month), heart stress test (on treadmill or with medication), echocardiogram (imaging of your heart structures), heart catherization (checking for blockages in your heart arteries), and a referral to see a [facility] [employer]. 5. Seek immediate medical care with worsening or with any concerns.?? Print Language: Turkish Stand Alone Forms: Noreen Award Info., Work/School Release, Patient Portal Info Letter
--- NOTE | 2024-11-08 18:51 | XR_ITS ---
Examination: AP chest single view TECHNIQUE: AP sitting portable chest single view. Date and time: November 08, 2024, 1904 hours Comparison September 13, 2023. INDICATIONS: Shortness of breath today. FINDINGS: Normal heart size. Lungs are clear. The osseous structures are intact. IMPRESSION: No active disease.
[2024-11-08 19:03] VITALS: BP 130/88; PULSE 113; RESP 19; TEMP 36.6; O2SAT 99
[2024-11-08 19:18] VITALS: BP 130/88; PULSE 112
[2024-11-08] MEDS: ONDANSETRON INJ 2 MG/ML INJ 2 ML 4 MG IVP (19:18)
[2024-11-08] MEDS: METOPROLOL TARTRATE 25 MG TABLET PO (19:18)
[2024-11-08] MEDS: ASPIRIN 81 MG CHEW 324 MG PO (19:19)
[2024-11-08 19:20] LABS: Basophils # (Auto) 0.0 Thou/mm3 (0.0-0.2); Basophils % (Auto) 0 % (0-2.5); Eosinophils # (Auto) 0.1 Thou/mm3 (0.0-0.5); Eosinophils % (Auto) 1 % (0-10); Hematocrit 37.0 % (36.0-46.0); Hemoglobin 12.7 g/dL (12.0-16.0); Immature Granulocytes Auto 0.02 Thou/mm3 (0.00-0.00); Lymphocytes # (Auto) 2.5 Thou/mm3 (1.0-4.8); Lymphocytes % (Auto) 35 % (10-50); Mean Corpuscular HGB Conc 34.3 g/dl (31.0-37.0); Mean Corpuscular Hemoglobin 30.2 pg (25.0-35.0); Mean Corpuscular Volume 88 fL (80-100); Monocytes # (Auto) 0.2 Thou/mm3 (0.0-0.8); Monocytes % (Auto) 3 % (0-12); Neutrophils # (Auto) 4.3 Thou/mm3 (1.8-7.7); Neutrophils % (Auto) 61 % (37-80); Nucleated Red Blood Cell # 0.00 Thou/mm3 (0.00-0.00); Nucleated Red Blood Cell % 0 /100 WBC (0); Platelet Count 287 Thou/mm3 (140-440); RDW Standard Deviation 38.2 fL (36.4-46.3); Red Blood Count 4.20 Miln/mm3 (4.00-5.20); White Blood Count 7.1 Thou/mm3 (3.6-11.0)
[2024-11-08 19:35] LABS: INR 0.9 (0.9-1.3); Partial Thromboplastin Time 23.2 Seconds (22.0-36.0); Prothrombin Time 10.4 Seconds (9.0-12.2)
[2024-11-08 19:40] LABS: D-Dimer < 250 ng/mL (<600)
[2024-11-08 19:41] LABS: B-Type Natriuretic Peptide < 20 pg/mL (0-100)
[2024-11-08 20:38] LABS: Alanine Aminotransferase 29 U/L (10-49); Albumin, Serum 4.3 gm/dL (3.5-5.0); Albumin/Globulin Ratio 1.9 (1.2-2.2); Alkaline Phosphatase 86 U/L (46-116); Anion Gap 12 (7-16); Aspartate Amino Transferase 20 U/L (0-34); BUN/Creatinine Ratio 9 Ratio (12-20); Bilirubin,Direct 0.1 mg/dL (0.0-0.3); Bilirubin,Total 0.4 mg/dL (0.3-1.2); Blood Urea Nitrogen 10 mg/dL (9-23); Calcium 9.6 mg/dL (8.3-10.6); Calcium (Corrected) 9.6 mg/dL (8.5-10.1); Carbon Dioxide 23.2 mMol/L (20.0-31.0); Chloride 108 mMol/L (98-107); Creatinine (Component) 1.1 mg/dL (0.6-1.3); Estimated Creatinine Clearance 68.7 mL/min (>60); Free T4 (Free Thyroxine) 1.47 ng/dL (0.89-1.76); Globulin 2.3 gm/dL (2.3-3.5); Glucose 136 mg/dL (74-106); Lipase 61 U/L (12-53); Magnesium 2.1 mg/dL (1.6-2.6); Osmolality,Calculated 285 (275-295); Potassium 3.5 mMol/L (3.4-5.1); Sodium 143 mMol/L (136-145); Thyroid Stimulating Hormone 1.32 uIU/mL (0.55-4.78); Total Protein 6.6 gm/dL (5.7-8.2); Troponin I < 0.002 ng/mL (0.0-0.045); eGFR > 60 See Note
[2024-11-08 20:54] LABS: Amylase 78 U/L (30-118)
[2024-11-08 21:53] LABS: Troponin I < 0.002 ng/mL (0.0-0.045)
[2024-11-08 22:51] VITALS: BP 113/80; PULSE 93; RESP 20; O2SAT 97
== END 2024-11-08 22:55 | disposition home or self-care (01) ==
PROVIDERS: Emergency Provider Emergency Medicine; PCP Family Medicine
DX: R00.2 Palpitations (principal); R07.9 Chest pain, unspecified; R06.02 Shortness of breath
CPT/HCPCS: 36415; 71045; 80053; 82150; 82248; 83690; 83735; 83880; 84439; 84443; 84484; 85025; 85379; 85610; 85730; 93005; 96374; 99284; J2405; A9270

== ENCOUNTER → 2024-11-25 | Outpatient (CLI) | payer OTHER, SELFPAY ==
[2024-11-25 09:53] LABS: Amylase 67 U/L (30-118); Cardiac Risk Estimate 3.4 RATIO (3.7-5.6); Cholesterol 186 mg/dL (132-200); HDL Cholesterol 55 mg/dL (40-60); LDL Cholesterol,Calculated 110 mg/dL (0-130); Lipase 45 U/L (12-53); Triglycerides 105 mg/dL (30-150)
== END | disposition home or self-care (01) ==
PROVIDERS: PCP Nurse Practitioner Family; Referring Provider Nurse Practitioner Family; Visit Provider Nurse Practitioner Family
DX: R74.8 Abnormal levels of other serum enzymes (principal); Z82.49 Family history of ischemic heart disease and other diseases of the circulatory system
CPT/HCPCS: 36415; 80061; 82150; 83690

== ENCOUNTER → 2024-12-23 | Outpatient (CLI) | payer OTHER, SELFPAY ==
--- NOTE | 2024-12-23 13:07 | XR_ITS ---
EXAMINATION: Cervical spine, 5 views Technique: Cervical spine AP, AP odontoid, lateral, bilateral obliques, 5 views Exam date and time: December 23, 2024, 1401 hours INDICATIONS: Neck pain beginning 2 weeks ago. FINDINGS: Straightening normal cervical lordosis. No cervical fracture. Intact odontoid. No cervical disc narrowing. No neural foraminal stenosis. IMPRESSION: No cervical fracture or arthritic change.
== END | disposition home or self-care (01) ==
PROVIDERS: PCP Internal Medicine; Referring Provider Nurse Practitioner Family; Visit Provider Nurse Practitioner Family
DX: M54.2 Cervicalgia (principal)
CPT/HCPCS: 72050

== ENCOUNTER → 2025-02-02 | Outpatient (CLI) | payer OTHER, SELFPAY ==
--- NOTE | 2025-02-02 10:30 | ECHO_ITS ---
Transthoracic Echo Report Ht (in): 65 Wt (lb): 158 Exam Location: Echo Lab Status: Preadmit Color Stripper: Karena Fry Indications: Procedure Performed: BP: 99 / 78 HR: 68 MEASUREMENTS (Male / Female) Normal Values 2D ECHO LV Diastolic Diameter PLAX 4.2 cm 4.2 - 5.9 / 3.9 - 5.3 cm LV Systolic Diameter PLAX 2.8 cm IVS Diastolic Thickness 0.8 cm 0.6 - 1.0 / 0.6 - 0.9 cm LVPW Diastolic Thickness 1.0 cm 0.6 - 1.0 / 0.6 - 0.9 cm LV Relative Wall Thickness 0.4 LVOT Diameter 1.9 cm Ascending Aorta Diameter 2.5 cm M-MODE AV Cusp Separation MM 1.0 cm DOPPLER AV Peak Velocity 73.8 cm/s AV Peak Gradient 2.2 mmHg AV Mean Gradient 1.0 mmHg AV Velocity Time Integral 13.2 cm LVOT Peak Velocity 42.9 cm/s LVOT Peak Gradient 0.7 mmHg LVOT Velocity Time Integral 8.5 cm LVOT Cardiac Index 897.8 cm?/min?m? AV Area Cont Eq vti 1.8 cm? AV Area Cont Eq pk 1.6 cm? MV Area PHT 3.4 cm? Mitral E Point Velocity 79.8 cm/s Mitral A Point Velocity 57.9 cm/s Mitral E to A Ratio 1.4 LV E' Lateral Velocity 3.7 cm/s Mitral E to LV E' Lateral Ratio 21.6 LV E' Septal Velocity 6.4 cm/s Mitral E to LV E' Septal Ratio 12.4 TR Peak Velocity 155.0 cm/s TR Peak Gradient 9.6 mmHg PV Peak Velocity 76.4 cm/s PV Peak Gradient 2.3 mmHg FINDINGS Left Ventricle Normal left ventricular size, wall thickness, systolic function with no obvious regional wall motion abnormalities. Normal left ventricular diastolic filling pattern for age. The ejection fraction is visually estimated at 60-65%. Right Ventricle The right ventricle is normal in size and systolic function. The estimated right ventricular systolic pressure, __ mmHg. Left Atrium The left atrium is normal by two-dimensional, color flow and Doppler imaging with no structural abnormalities, no thrombus formation present. Right Atrium The right atrium is normal by two-dimensional imaging, color flow and Doppler imaging with no structural abnormalities, no thrombus formation present. Atrial Septum The interatrial septum appears normal with no evidence of a shunt. Aorta The aorta is normal by two-dimensional, color flow and Doppler interrogation. Mitral Valve The mitral valve is normal by two-dimensional, color flow and Doppler interrogation. There is no significant mitral valve regurgitation, stenosis or prolapse. Aortic Valve The aortic valve is trileaflet and normal by two-dimensional, color flow and Doppler interrogation. There is no significant aortic valve regurgitation. Tricuspid Valve The tricuspid valve is normal by two-dimensional, color flow and Doppler interrogation. There is trace tricuspid valve regurgitation. Pulmonic Valve The pulmonic valve is not well visualized. There is no significant pulmonic valve regurgitation. Vessels The pulmonary artery appears normal. The inferior vena cava pulmonary and hepatic veins appear normal. Pericardium The pericardium is normal by two-dimensional imaging. There is no significant pericardial effusion. Other Findings Off axis due to breast implants CONCLUSIONS Indication: Shortness of breath Normal left ventricular size and function. Approximate ejection fraction is 60- 65%. Normal diastolic filling Normal right ventricular size and function. Trace tricuspid regurgitation noted. Compared to prior study of 04/17/21 Hanny Carter (Electronically Signed) Final Date: 02 February 2025 13:03
== END | disposition home or self-care (01) ==
PROVIDERS: PCP Internal Medicine; Referring Provider Internal Medicine; Visit Provider Internal Medicine
DX: R06.02 Shortness of breath (principal); I07.1 Rheumatic tricuspid insufficiency
CPT/HCPCS: 93306

== ENCOUNTER → 2025-03-29 | Outpatient (CLI) | payer OTHER, SELFPAY ==
[2025-03-29 16:34] LABS: Basophils # (Auto) 0.0 Thou/mm3 (0.0-0.2); Basophils % (Auto) 0 % (0-2.5); Eosinophils # (Auto) 0.1 Thou/mm3 (0.0-0.5); Eosinophils % (Auto) 1 % (0-10); Hematocrit 36.4 % (36.0-46.0); Hemoglobin 12.1 g/dL (12.0-16.0); Immature Granulocytes Auto 0.01 Thou/mm3 (0.00-0.00); Lymphocytes # (Auto) 1.8 Thou/mm3 (1.0-4.8); Lymphocytes % (Auto) 38 % (10-50); Mean Corpuscular HGB Conc 33.2 g/dl (31.0-37.0); Mean Corpuscular Hemoglobin 30.9 pg (25.0-35.0); Mean Corpuscular Volume 93 fL (80-100); Monocytes # (Auto) 0.4 Thou/mm3 (0.0-0.8); Monocytes % (Auto) 8 % (0-12); Neutrophils # (Auto) 2.5 Thou/mm3 (1.8-7.7); Neutrophils % (Auto) 53 % (37-80); Nucleated Red Blood Cell # 0.00 Thou/mm3 (0.00-0.00); Nucleated Red Blood Cell % 0 /100 WBC (0); Platelet Count 277 Thou/mm3 (140-440); RDW Standard Deviation 40.5 fL (36.4-46.3); Red Blood Count 3.92 Miln/mm3 (4.00-5.20); White Blood Count 4.8 Thou/mm3 (3.6-11.0)
[2025-03-29 16:40] LABS: Alanine Aminotransferase 30 U/L (10-49); Albumin, Serum 4.3 gm/dL (3.5-5.0); Albumin/Globulin Ratio 1.7 (1.2-2.2); Alkaline Phosphatase 77 U/L (46-116); Anion Gap 10 (7-16); Aspartate Amino Transferase 19 U/L (0-34); BUN/Creatinine Ratio 15 Ratio (12-20); Bilirubin,Total 0.2 mg/dL (0.3-1.2); Blood Urea Nitrogen 12 mg/dL (9-23); Calcium 8.6 mg/dL (8.3-10.6); Calcium (Corrected) 8.6 mg/dL (8.5-10.1); Carbon Dioxide 27.9 mMol/L (20.0-31.0); Chloride 109 mMol/L (98-107); Creatinine (Component) 0.8 mg/dL (0.6-1.3); Globulin 2.5 gm/dL (2.3-3.5); Glucose 129 mg/dL (74-106); Osmolality,Calculated 294 (275-295); Potassium 3.7 mMol/L (3.4-5.1); Sodium 147 mMol/L (136-145); Total Protein 6.8 gm/dL (5.7-8.2); eGFR > 60 See Note
[2025-03-29 16:57] LABS: CA 15-3 5.5 U/mL (<32.4); Carcinoembryonic Antigen 0.6 ng/mL (0.0-5.0)
[2025-04-04 07:42] LABS: CA 19-9 Antigen* 27 U/mL (<34)
== END | disposition home or self-care (01) ==
LOC: COPL 14:34 → SCTO 14:42
PROVIDERS: PCP Internal Medicine; Referring Provider Internal Medicine Hematology & Oncology; Visit Provider Internal Medicine Hematology & Oncology
DX: C50.311 Malignant neoplasm of lower-inner quadrant of right female breast (principal); C50.111 Malignant neoplasm of central portion of right female breast
CPT/HCPCS: 36415; 80053; 82378; 85025; 86300; 86301

== ENCOUNTER 2025-04-04 15:31 | Outpatient (RCR) | payer OTHER, SELFPAY ==
--- NOTE | 2025-04-04 16:24 | CTCFLWUP_ITS ---
Patient: EILEEN TATUM : 1985 Page 2 of 2 FOLLOW UP NOTE DATE OF SERVICE: 04/04/2025 NAME: EILEEN TATUM ACCOUNT: [id number] : 1985 AGE: 39 INTERVAL HISTORY: Subjective: Patient is having headache . frequent headaches and dizziness . patient s weight is stable for last 2 months. Patient gets nauseated. History of Present Illness Eileen is a young female patient with a history of stage one breast cancer, diagnosed in March, who presents for follow-up. She reports no changes since her last visit. The patient's medical history is significant for stage one breast cancer with an Oncotype DX score of 24, leading to chemotherapy treatment. She has a PALB2 and CHEK2 mutation. Eileen underwent bilateral mastectomies with reconstruction and a total hysterectomy due to a benign cyst in her right ovary. She is currently on tamoxifen. Eileen reports experiencing more frequent headaches recently. She has been losing weight slowly through increased physical activity, including walking more and going to the gym. The patient denies any sudden or unexplained weight loss. She is following up with Dr. Harmon for colonoscopies every [address] Whitney at [facility] for annual pancreatic MRIs. The patient reports no family history of cancer. She has no children and did not preserve her eggs before her total hysterectomy. Eileen adheres to her follow- up appointments and maintains a healthy lifestyle, including regular exercise and a balanced diet. Medications and Supplements - Tamoxifen - Vitamin D - Taken daily Review of Systems General: Positive for gradual weight loss. HEENT: Positive for more frequent headaches. Neurological: Positive for more frequent headaches. Objective: Laboratory, Imaging, and Diagnostic Test Results - Oncotype DX score: 24 - Bone density scan (June 2022): Normal - Imaging scan (December 2023): Negative - ETD colonoscopy: Performed (date not specified) - MRI: Performed annually (specific results not mentioned) ONCOLOGY HISTORY: DIAGNOSIS: Stage I (pT1b, snN0, cM0) ER positive, NH positive, HER-2/austin negative, intermediate grade invasive ductal carcinoma of the right breast. S/p lumpectomy (12/11/2020) and sentinel lymph node biopsy (01/15/2021) Oncotype DX recurrence score 24. S/p adjuvant chemotherapy with 1 cycle of AC and 3 cycles of TC chemotherapy. Patient was not able to tolerate Adriamycin regimen which caused significant palpitations. (04/08/2021 - 06/18/2021) S/p adjuvant radiation therapy to the right breast (07/17/2021 - 09/04/2021) Ms. Tatum is premenopausal. Last menstrual period was on 06/12/2021. On Lupron and anastrozole (07/08/2021?02/13/2022). Anastrozole discontinued due to significant arthralgias. Patient is started on Aromasin. Lupron and Aromasin stopped on 09/24/2022 due to depression at patient's request. Tamoxifen started on 09/24/2022. PALB2 and CHEK2 mutaion positive S/p hysteroscopy, LEEP cone biopsy of the cervix, endocervical curettings and endometrial curettings on 12/16/2022. Patient had cold knife conization and endocervical curettage again on 02/18/2023. Pathology was negative for malignancy. Status post bilateral mastectomies on 09/23/2023 REASON FOR TODAY?S VISIT: Patient is here for follow-up. Patient have early stage breast cancer but was found to have PAL B2 and CHEK2 mutation and underwent bilateral mastectomy hysterectomy and oophorectomy. Patient also follows with Dr. Ravi for his pancreatic cancer surveillance and Dr. Harmon for GI cancer surveillance. Patient understand that she is at high risk of GI malignancies. Malignant neoplasm of central portion of right female breast [ICD10] C50.111 DATE OF DIAGNOSIS: STAGE/TNM: TREATMENT HISTORY: Care?Plan Start?Date Cycle Day Intent AC-Taxol?Dose?Dense?q?2wks 03/20/2021 1 14 Curative?(adjuvant) DOCEtaxel?75,?Cyclophosphamide?600 05/06/2021 1 21 Curative?(adjuvant) Lupron?7.5?mg 07/08/2021 1 30 Curative?(adjuvant) HISTORY OF PRESENT ILLNESS: Eileen Tatum is a 39-year-old ENG speaking female with following oncology history. Ms. Tatum felt a lump in the upper inner quadrant of the right breast in early part of 2019. She saw Dr. Camp who apparently aspirated this area about 3 times. Patient continues to have the ma ss lesion. 10/21/2018: Patient had bilateral breast ultrasound? 01/25/2019: Ultrasound-guided biopsy of the right breast cystic solid mass lesion? 05/11/2020: Bilateral diagnostic digital mammograms? 07/17/2020: Right breast ultrasound? 09/06/2020: right breast ultrasound-guided biopsy? 12/11/2020: Patient had right breast lumpectomy? 01/15/2021: Ms. Tatum had sentinel lymph node biopsy? Oncotype DX score (reported on 03/19/2021): Recurrence score 24 with an absolute chemotherapy benefit of 6.5% in premenopausal woman. 02/18/2021: Leeann genetic test results? 04/08/2021: Patient received first cycle of dose dense AC. Unfortunately she developed significant tachycardia along with shortness of breath intermittently few days after chemotherapy. She was monitoring her tachycardia on the apple phone along with apple watch. At times her heart rate went up to 170. 05/06/2021: Patient received first cycle of TC chemotherapy. 05/15/2021?05/20/2021: Patient was admitted to [facility] because of neutropenic fever as well as asymptomatic Covid infection. She was treated with IV antibiotics as well as Neupogen. She did not have any pneumonia. She did not require any oxygen therapy. 04/08/2021?06/18/2021: Ms. Tatum received 1 cycle of AC chemotherapy and 3 cycles of TC chemotherapy in the adjuvant setting. 07/08/2021: Ms. Tatum is started on anastrozole and Lupron. 12/11/2021: Pelvic ultrasound? 02/13/2022: Anastrozole discontinued due to arthralgias. Patient is started on Aromasin. 09/24/2022: Stopped Lupron due to depression at patient?s request 09/23/2022: Started on tamixofen. 11/07/2022: US transvaginal 11/07/2022: Mammo CAD diagnostic BI 12/09/2022: Patient had endometrial biopsy as well as endocervical biopsy 12/16/2022: Ms. Tatum had hysteroscopy, LEEP cone biopsy of the cervix, endocervical curettings and endometrial curettings 02/18/2023: Ms. Tatum had examination under anesthesia, cold knife conization and endocervical curettage for a suspicious mass of the cervix. 06/16/2023: Bilateral screening mammograms 06/24/2023: Bilateral breast ultrasound? 09/23/2023: Patient had bilateral mastectomies. 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 Flexeril - 5 mg 1 tab Daily 2. gabapentin - 100 mg 1 tab Daily 3. ibuprofen - 600 mg 1 tab As needed 4. metoprolol succinate - 25 mg 1 tab Daily 5. tamoxifen - 20 mg 1 tab Daily 6. Tylenol - 325 mg 1 tab As directed 7. Zofran - 8 mg 1 tab Three times a day 8. ZyrTEC - 10 mg 1 Capsule Daily Medications Last Reconciled by Estela Kennedy MA on 04/04/2025 ALLERGIES: tramadol; dairy; Adhesive tape REVIEW OF SYSTEMS: A complete 14-point review of systems was performed and is negative except as noted in interval history. PHYSICAL EXAMINATION: VITAL SIGNS: Temperature?98.6, B/P?109/79, Oxygen?Saturation?98% Weight?158?lbs PAIN: 0 - No pain ECOG Performance Status: 0 - Asymptomatic and fully active EYE: Conjunctivae is pink. MOUTH: Oral cavity is dry. CHEST: Clear to auscultation. No wheezes or rales audible. Very well healing scar on the right breast without any evidence of infection. CARDIAC: Rhythm regular, no murmurs or gallops present. ABDOMEN: Soft. No hepatomegaly. No splenomegaly. EXTREMITIES: No pedal edema or cyanosis. LABORATORY DATA: I have personally reviewed and interpreted each of the patient?s relevant lab tests, abnormal findings are below: Date 03/29/25 ??WHITE?BLOOD?COUNT?(Thou/mm3) 4.8 ??RED?BLOOD?COUNT?(Miln/mm3) 3.92?L ??HEMOGLOBIN?(gm/dl) 12.1 ??HEMATOCRIT?(%) 36.4 ??PLATELET?COUNT?(Thou/mm3) 277 ??NEUTROPHILS?%,?AUTO?(%) 53 ??LYMPH?%,?AUTO?(%) 38 ??NEUTROPHILS,?AUTO?(Thou/mm3) 2.5 ??GLUCOSE,RANDOM?(mg/dL) 129?H ??BLOOD?UREA?NITROGEN?(mg/dL) 12 ??CREATININE?(mg/dL) 0.80 ??SODIUM?(mmol/L) 147?H ??POTASSIUM?(mmol/L) 3.7 ??CHLORIDE?(mmol/L) 109?H ??CrCl?(CandG)?(ml/min) 106.86 ??AST/SGOT?(Unit/L) 19 ??ALT/SGPT?(Unit/L) 30 ??ALKALINE?PHOSPHATASE?(Unit/L) 77 ??BILIRUBIN,?TOTAL?(mg/dL) 0.2?L ??PROTEIN?TOTAL?(gm/dl) 6.8 ??ALBUMIN,?SERUM?(gm/dl) 4.3 ??GLOBULIN?(gm/dl) 2.5 ??ALBUMIN/GLOBULIN?RATIO 1.7 ??CALCIUM,?SERUM?(mg/dL) 8.6 ??CALCIUM?SERUM?(CORRECTED)?(mg/dL) 8.6 ??CEA?(O*)?(ng/ml) 0.6 ??CA?19-9?(Unit/mL) 27.00 ASSESSMENT/PLAN: 1. Stage I (pT1b, snN0, cM0) ER positive, NH positive, HER-2/austin negative, intermediate grade invasive ductal carcinoma of the right breast. S/p lumpectomy (12/11/2020) and sentinel lymph node biopsy (01/15/2021). Oncotype DX recurrence score 24. [facility] hereditary cancer test showed her to be positive for PALB2 as well as CHEK2 mutations as described above. Ms. Tatum's paternal aunt had breast cancer. No family history of ovarian cancers Patient had bilateral prophylactic mastectomies on 09/23/2023 [place] followed by breast reconstructionStatus post bilateral prophylactic mastectomies on 09/23/2023. Ms. Tatum had hysteroscopy as well as endocervical curettings (12/16/2022) which showed low-grade squamous intraepithelial lesion (JAEL I). Currently Ms. Tatum is being followed by Dr. Lennie Winchester, gynecology oncologist regarding the cervical mass. CT scan of the chest abdomen and pelvis with contrast done on 11/20/2022 showed a subtle mass in the cervix. Transvaginal Ultrasound (11/07/2022) showed pelvic mass, will get a OBGYN referral going. Pelvic ultrasound is negative for any uterine or ovarian masses Ms. Tatum completed 4 cycles of adjuvant chemotherapy (1 cycle of before meals and 3 cycles of TC. She also completed adjuvant radiation therapy. Patient was diagnosed with stage one breast cancer in March. Oncotype DX score was 24, leading to the decision for chemotherapy despite the benefit being less than one percent due to the patient's young age. Patient underwent bilateral mastectomies with reconstruction. CHEK2 mutation was identified. Patient also had a total hysterectomy due to a benign cyst in the right ovary. Last scan in December was negative. Patient is currently on tamoxifen. Plan: - Continue tamoxifen (dose and frequency not specified) - BONE DENSITY decreased - Recommend daily vitamin D supplementation - Monitor for sudden weight loss or new symptoms - Consider annual Zometa if bone density is low - Advise genetic counseling for future family planning - Continue current weight loss efforts through walking and gym attendance Egg preservation is not done - Recommend keto diet with emphasis on healthier carbs (vegetables and fruits) - Limit processed foods - Follow up after bone density results CHEK2 Mutation - Increased Cancer Risk Assessment: Patient has a CHEK2 mutation, which increases the risk for various cancers, including colorectal and pancreatic. Patient is currently following up with Dr. Harmon for colonoscopy every [address] Whitney at [facility] for annual pancreatic MRI. Plan: - Add CA99 and CEA markers to testing for colon and pancreatic cancer screening - Continue follow-up with Dr. Harmon for colonoscopy every 3 years - Continue annual pancreatic MRI with Dr. Whitney at [facility] - Educate patient on being vigilant for symptoms related to colorectal and pancreatic issues Menopausal Symptoms Assessment: Patient has undergone total hysterectomy, leading to surgical menopause. Patient reports more frequent headaches, which may be related to menopausal changes. Other potential menopausal symptoms include reduced vision, muscle weakness, vaginal dryness, and decreased libido. Plan: - Recommend vision check - Advise on use of vaginal moisturizers (e.g., applying Vaseline after shower) - Discuss possibility of using estrogen cream for vaginal health if needed - Encourage increased water intake - Avoid supplements with estrogen or phytoestrogens . ORDERS: Order # Description [id number] CA 19-9 + Comprehensive Metabolic Panel - 12 + CBC with Auto Diff + CEA + CA 125 + CA 15-3 + MD Follow Up 6 Month [id number] RETURN TO CLINIC: I reviewed the diagnosis, prognosis, and recommended treatment/procedure options with the patient (and/or their legal residential sales representative), including the potential benefits, risks, side effects and alternative therapies. We also discussed the option of no treatment and the possibility of clinical trial participation, if applicable. All questions were addressed, and they demonstrated understanding. They provided informed consent to proceed with the proposed plan of care. BILLING AND COMPLIANCE: I reviewed external records from providers outside my specialty as summarized above. I spent a total of 50 minutes on this patient?s care on the day of their visit excluding time spent related to any billed procedures. This time includes time spent with the patient as well as time spent documenting in the medical record, reviewing patients records and tests, obtaining history, placing orders, communicating with other healthcare professionals, counseling the patient, family or caregiver, and/or care coordination for the diagnoses above. Electronically Signed by: Corona Christiansen MD T: 4:21 PM CC: Tomas?[email or web address]?Buddy,? PCP: Tomas Gunderson Referring: Tomas Gunderson This document was completed utilizing speech recognition software. Grammatical errors, random word insertions, pronoun errors, and incomplete sentences are an occasional consequence of this system due to software limitations, ambient noise, and hardware issues. Any formal questions or concerns about the content, text or information contained within the body of this dictation should be directly addressed to the provider for clarification.
== END 2025-04-26 23:59 | disposition home or self-care (01) ==
LOC: SCTC 15:31
PROVIDERS: PCP Internal Medicine; Referring Provider Internal Medicine; Visit Provider Internal Medicine Hematology & Oncology
DX: C50.311 Malignant neoplasm of lower-inner quadrant of right female breast (principal); Z17.0 Estrogen receptor positive status [ER+]; Z17.21 Progesterone receptor positive status; Z17.32 Human epidermal growth factor receptor 2 negative status; Z79.810 Long term (current) use of selective estrogen receptor modulators (SERMs); Z15.060 Genetic susceptibility to colorectal cancer; Z15.02 Genetic susceptibility to malignant neoplasm of ovary; Z15.068 Genetic susceptibility to other malignant neoplasm of digestive system; Z80.3 Family history of malignant neoplasm of breast; Z90.710 Acquired absence of both cervix and uterus; Z90.13 Acquired absence of bilateral breasts and nipples; Z92.3 Personal history of irradiation; Z92.21 Personal history of antineoplastic chemotherapy
CPT/HCPCS: 99212; G0463